=== PATIENT | male | born 1935 | race Caucasian/White ===

== ENCOUNTER 2023-08-31 07:01 | Inpatient (IN) | payer MEDICARE ==
[2023-08-31 07:49] LABS: #Eosinphils 0.1 thou/uL (0.0-0.7); #Monocytes 0.6 thou/uL (0.11-0.59); #Neutrophils 6.3 thou/uL (1.40-6.50); %Basophils 0.4 % (0.0-1.0); %Eosinophils 0.6 % (0.0-10.0); %Lymphocytes 11.5 % (21.0-51.0); Hematocrit 31.3 % (42.0-52.0); Hemoglobin 11.6 g/dL (14.0-18.0); Mean Corpuscular HGB CONC 37.1 g/dL (32.0-36.0); Mean Corpuscular Hemoglobin 32.8 pg (27.0-31.0); Mean Corpuscular Volume 88.4 fl (78.0-98.0); Mean Platelet Volume 9.6 fL (7.4-10.4); Platelet Count 222 10x3/uL (130-400); RBC Distribution Width 12.4 % (11.5-14.5); Red Blood Cell (RBC) Count 3.54 mill/uL (4.70-6.10); White Blood Cell (WBC) Count 7.9 10x3/uL (4.8-10.8)
[2023-08-31 07:59] LABS: Prothrombin Time 13.7 sec (12.0-14.7)
[2023-08-31] MEDS ORDERED: Acetaminophen 500 MG TAB ONE (07:59)
[2023-08-31 08:00] LABS: PTT 32.3 sec (22.9-36.1)
[2023-08-31 08:19] LABS: Troponin I Less than 0.010 ng/mL (< 0.028)
[2023-08-31 08:30] LABS: Bacteria/HPF None Seen HPF (None Seen); Bilirubin Negative (Negative); Blood, Urine Negative (Negative); CAUTI Indications for Culture Dysuria,urgency,freq; Clarity Clear (Clear); Glucose, Urine (Dipstick) Normal (Negative); Ketone, Urine Negative (Negative); Leukocyte Negative Leu/uL (Negative); Nitrite Negative (Negative); Protein, Urine (Dipstick) Negative (Neg-Trace); RBC/HPF 0-3 HPF (0-3); Specific Gravity, Urine 1.011 (1.002-1.036); Squamous Epithelial 0-3 HPF (0-3); WBC/HPF None Seen HPF (0-3); pH, Urine 7.5 (5.0-9.0)
[2023-08-31 08:31] LABS: ALT (SGPT) 8 U/L (8-55); AST (SGOT) 15 U/L (5-34); Albumin 3.6 g/dL (3.4-4.8); Alkaline Phosphatase 98 U/L (40-110); Anion Gap 12 mmol/L (10-20); BUN (Urea Nitrogen) 13 mg/dL (8.4-25.7); Bilirubin, Total 1.4 mg/dL (0.2-1.2); Calc. Creatinine Clearance 0 mL/min (70-130); Calcium 8.7 mg/dL (7.8-10.44); Carbon Dioxide 29 mmol/L (23-31); Chloride 90 mmol/L (98-107); Estimated GFR 57; Globulin 2.5 g/dL (2.4-3.5); Glucose 114 mg/dL (83-110); Magnesium 1.5 mg/dL (1.6-2.6); Potassium 2.8 mmol/L (3.5-5.1); Protein, Total 6.1 g/dL (5.8-8.1); Sodium 128 mmol/L (136-145)
[2023-08-31 08:35] LABS: Urine Culture Reflex No No
[2023-08-31] MEDS ORDERED: Magnesium 2 GM/50 ML BAG (IN WATER) ONE (09:34)
[2023-08-31] MEDS ORDERED: Potassium Bicarbonate/Cit Ac 20 MEQ TAB ONE (09:34)
[2023-08-31 12:17] VITALS: BMI 23.6
[2023-08-31] MEDS: Potassium Chloride 20 MEQ TAB PO SCH ×2 (13:29→18:17)
[2023-08-31] MEDS: Ondansetron PF 4 MG/2 ML Vial IVP PRN (17:00)
[2023-08-31] MEDS: Losartan 25 MG TAB PO SCH (20:29)
[2023-09-01] MEDS: Benzonatate 100 MG CAP PO PRN (00:56)
[2023-09-01 06:35] LABS: #Eosinphils 0.1 thou/uL (0.0-0.7); #Monocytes 0.7 thou/uL (0.11-0.59); %Basophils 0.4 % (0.0-1.0); %Eosinophils 0.9 % (0.0-10.0); %Lymphocytes 13.6 % (21.0-51.0); %Monocytes 7.9 % (0.0-10.0); %Neutrophils 76.7 % (42.0-75.0); Hemoglobin 11.9 g/dL (14.0-18.0); Mean Corpuscular HGB CONC 36.1 g/dL (32.0-36.0); Mean Corpuscular Hemoglobin 32.7 pg (27.0-31.0); Mean Corpuscular Volume 90.7 fl (78.0-98.0); Mean Platelet Volume 9.5 fL (7.4-10.4); Platelet Count 261 10x3/uL (130-400); RBC Distribution Width 12.4 % (11.5-14.5); Red Blood Cell (RBC) Count 3.64 mill/uL (4.70-6.10); White Blood Cell (WBC) Count 9.2 10x3/uL (4.8-10.8)
[2023-09-01 07:03] LABS: Anion Gap 11 mmol/L (10-20); BUN (Urea Nitrogen) 10 mg/dL (8.4-25.7); Calc. Creatinine Clearance 49 mL/min (70-130); Calcium 8.7 mg/dL (7.8-10.44); Carbon Dioxide 26 mmol/L (23-31); Chloride 95 mmol/L (98-107); Estimated GFR 68; Glucose 108 mg/dL (83-110); Magnesium 1.6 mg/dL (1.6-2.6); Potassium 3.9 mmol/L (3.5-5.1); Sodium 128 mmol/L (136-145)
[2023-09-01] MEDS: Losartan 25 MG TAB PO SCH ×2 (10:12→20:31)
[2023-09-01] MEDS: Ondansetron PF 4 MG/2 ML Vial IVP PRN (10:12)
[2023-09-01] MEDS: Amlodipine 5 MG TAB PO SCH (10:12)
[2023-09-01] MEDS ORDERED: GoLYTELY 4,000 ml Bottle PO SCH (15:15)
[2023-09-01] MEDS: Pantoprazole 40 MG VIAL IVP SCH (20:31)
[2023-09-02 06:08] LABS: Anion Gap 17 mmol/L (10-20); BUN (Urea Nitrogen) 12 mg/dL (8.4-25.7); Calc. Creatinine Clearance 49 mL/min (70-130); Carbon Dioxide 26 mmol/L (23-31); Chloride 95 mmol/L (98-107); Estimated GFR 66; Glucose 118 mg/dL (83-110); Magnesium 1.6 mg/dL (1.6-2.6); Potassium 3.5 mmol/L (3.5-5.1); Sodium 134 mmol/L (136-145)
[2023-09-02] MEDS: Pantoprazole 40 MG VIAL IVP SCH ×2 (09:56→20:24)
[2023-09-02] MEDS: Losartan 25 MG TAB PO SCH ×2 (09:56→20:23)
[2023-09-02] MEDS: Amlodipine 5 MG TAB PO SCH (09:56)
[2023-09-02] MEDS ORDERED: Iopamidol-370 76% 500 ML MDV (1 ML CHARGE) ONE (13:13)
[2023-09-02] MEDS ORDERED: PROPOFOL 40 ML ONE (16:06)
[2023-09-02] MEDS ORDERED: Lidocaine 1% PF 5 ML VIAL ONE ×2 (16:06→16:20)
[2023-09-02] MEDS ORDERED: PROPOFOL 200 MG/20 ML VIAL ONE (16:20)
[2023-09-02] MEDS ORDERED: PHENYLEPHRINE-NS 100 MCG/ML 10 ML SYRINGE ONE ×3 (16:20→16:52)
[2023-09-02] MEDS ORDERED: Ondansetron PF 4 MG/2 ML Vial ONE ×2 (16:20→16:39)
[2023-09-02] MEDS ORDERED: Esmolol 100 MG/10 ML VIAL ONE ×2 (16:20→16:23)
[2023-09-02] MEDS ORDERED: PROPOFOL 20 ML ONE ×2 (16:53→17:15)
[2023-09-02] MEDS: Ondansetron PF 4 MG/2 ML Vial IVP PRN (21:40)
[2023-09-03] MEDS: Benzonatate 100 MG CAP PO PRN (00:36)
[2023-09-03 08:01] VITALS: BP 135/73; TEMP 98.5
[2023-09-03] MEDS: Losartan 25 MG TAB PO SCH (08:22)
[2023-09-03] MEDS: Amlodipine 5 MG TAB PO SCH (08:22)
[2023-09-03] MEDS: Pantoprazole 40 MG VIAL IVP SCH (08:22)
[2023-09-03] MEDS ORDERED: FLU VACC QS2023(65UP)/MF59C/PF 60 MCG/0.5 ML SYRINGE IM ONE (09:00)
[2023-09-03 11:18] LABS: #Monocytes 0.6 thou/uL (0.11-0.59); #Neutrophils 10.2 thou/uL (1.40-6.50); %Basophils 0.3 % (0.0-1.0); %Eosinophils 0.2 % (0.0-10.0); %Lymphocytes 7.3 % (21.0-51.0); %Monocytes 5.4 % (0.0-10.0); %Neutrophils 86.3 % (42.0-75.0); Hematocrit 32.6 % (42.0-52.0); Hemoglobin 11.5 g/dL (14.0-18.0); Mean Corpuscular HGB CONC 35.3 g/dL (32.0-36.0); Mean Corpuscular Hemoglobin 32.1 pg (27.0-31.0); Mean Corpuscular Volume 91.1 fl (78.0-98.0); Mean Platelet Volume 9.2 fL (7.4-10.4); Platelet Count 257 10x3/uL (130-400); RBC Distribution Width 12.6 % (11.5-14.5); Red Blood Cell (RBC) Count 3.58 mill/uL (4.70-6.10); White Blood Cell (WBC) Count 11.8 10x3/uL (4.8-10.8)
== END 2023-09-03 12:42 | disposition home or self-care (01) | DRG 844 ==
LOC: ERS 07:01 → T4-B 12:12 → OBSVTOIN 09-01 13:52
PROVIDERS: ADMIT Internal Medicine; ATTEND Internal Medicine
PROC: 0DB68ZX Excision of Stomach, Via Natural or Artificial Opening Endoscopic, Diagnostic (ICD-10-PCS; principal; 2023-09-02)
PROC: 0DBK8ZZ Excision of Ascending Colon, Via Natural or Artificial Opening Endoscopic (ICD-10-PCS; 2023-09-02)
PROC: 0DBL8ZZ Excision of Transverse Colon, Via Natural or Artificial Opening Endoscopic (ICD-10-PCS; 2023-09-02)
PROC: 0DBP8ZZ Excision of Rectum, Via Natural or Artificial Opening Endoscopic (ICD-10-PCS; 2023-09-02)
PROC: 0DBM8ZZ Excision of Descending Colon, Via Natural or Artificial Opening Endoscopic (ICD-10-PCS; 2023-09-02)
PROC: 0DBH8ZZ Excision of Cecum, Via Natural or Artificial Opening Endoscopic (ICD-10-PCS; 2023-09-02)
DX: D3A.8 Other benign neuroendocrine tumors (principal); E87.1 Hypo-osmolality and hyponatremia; K62.5 Hemorrhage of anus and rectum; K62.89 Other specified diseases of anus and rectum; K62.1 Rectal polyp; I10 Essential (primary) hypertension; E87.6 Hypokalemia; E83.42 Hypomagnesemia; Z66 Do not resuscitate; K31.89 Other diseases of stomach and duodenum; K64.4 Residual hemorrhoidal skin tags; K64.8 Other hemorrhoids; D12.2 Benign neoplasm of ascending colon; D12.3 Benign neoplasm of transverse colon; D12.4 Benign neoplasm of descending colon; D12.5 Benign neoplasm of sigmoid colon; Z98.890 Other specified postprocedural states
CPT/HCPCS: 36415; 71260; 74174; 74177; 80048; 80053; 81001; 82274; 83735; 83880; 83935; 84300; 84443; 84484; 85025; 85610; 85730; 86850; 86900; 86901; 88305; 88341; 88342; 88360; 90471; 90694; 93005; 93010; 96360; 96375; 96376; C9113; G0008; G0378; J2405; J2704; J3475; Q9967

== ENCOUNTER 2023-11-02 12:20 | Emergency (ER) | payer MEDICARE ==
[2023-11-02] MEDS ORDERED: Ondansetron ODT 8 MG TAB ONE (14:52)
[2023-11-02 15:50] LABS: #Monocytes 0.2 thou/uL (0.11-0.59); #Neutrophils 5.1 thou/uL (1.40-6.50); %Basophils 0.2 % (0.0-1.0); %Lymphocytes 9.1 % (21.0-51.0); %Monocytes 3.9 % (0.0-10.0); %Neutrophils 86.3 % (42.0-75.0); Hematocrit 34.9 % (42.0-52.0); Hemoglobin 12.6 g/dL (14.0-18.0); Mean Corpuscular HGB CONC 36.1 g/dL (32.0-36.0); Mean Corpuscular Hemoglobin 31.3 pg (27.0-31.0); Mean Corpuscular Volume 86.6 fl (78.0-98.0); Mean Platelet Volume 10.4 fL (7.4-10.4); Platelet Count 121 10x3/uL (130-400); RBC Distribution Width 12.4 % (11.5-14.5); Red Blood Cell (RBC) Count 4.03 mill/uL (4.70-6.10); White Blood Cell (WBC) Count 5.9 10x3/uL (4.8-10.8)
[2023-11-02 16:41] LABS: ALT (SGPT) 18 U/L (8-55); AST (SGOT) 27 U/L (5-34); Albumin 3.4 g/dL (3.4-4.8); Alkaline Phosphatase 92 U/L (40-110); Anion Gap 13 mmol/L (10-20); BUN (Urea Nitrogen) 17 mg/dL (8.4-25.7); Bilirubin, Total 1.1 mg/dL (0.2-1.2); Calc. Creatinine Clearance 0 mL/min (70-130); Calcium 8.3 mg/dL (7.8-10.44); Carbon Dioxide 26 mmol/L (23-31); Chloride 96 mmol/L (98-107); Estimated GFR 61; Globulin 2.8 g/dL (2.4-3.5); Glucose 116 mg/dL (83-110); Lipase 27 U/L (8-78); Potassium 3.6 mmol/L (3.5-5.1); Protein, Total 6.2 g/dL (5.8-8.1); Sodium 131 mmol/L (136-145)
== END 2023-11-02 17:21 | disposition home or self-care (01) ==
LOC: ERS 12:20
DX: R63.0 Anorexia (principal); I10 Essential (primary) hypertension; Z79.899 Other long term (current) drug therapy
CPT/HCPCS: 36415; 80053; 83690; 85025; 99284; Q0162

== ENCOUNTER 2023-11-09 02:26 | Emergency (ER) | payer MEDICARE ==
[2023-11-09 03:58] LABS: #Eosinphils 0.1 thou/uL (0.0-0.7); #Monocytes 0.5 thou/uL (0.11-0.59); #Neutrophils 4.7 thou/uL (1.40-6.50); %Basophils 0.2 % (0.0-1.0); %Eosinophils 1.6 % (0.0-10.0); %Lymphocytes 15.5 % (21.0-51.0); %Monocytes 7.4 % (0.0-10.0); %Neutrophils 74.4 % (42.0-75.0); Hematocrit 35.8 % (42.0-52.0); Hemoglobin 12.7 g/dL (14.0-18.0); Mean Corpuscular HGB CONC 35.5 g/dL (32.0-36.0); Mean Corpuscular Hemoglobin 30.6 pg (27.0-31.0); Mean Corpuscular Volume 86.3 fl (78.0-98.0); Mean Platelet Volume 9.3 fL (7.4-10.4); Platelet Count 329 10x3/uL (130-400); RBC Distribution Width 12.5 % (11.5-14.5); Red Blood Cell (RBC) Count 4.15 mill/uL (4.70-6.10); White Blood Cell (WBC) Count 6.3 10x3/uL (4.8-10.8)
[2023-11-09 04:09] LABS: ALT (SGPT) 17 U/L (8-55); AST (SGOT) 19 U/L (5-34); Albumin 3.5 g/dL (3.4-4.8); Alkaline Phosphatase 110 U/L (40-110); Anion Gap 14 mmol/L (10-20); BUN (Urea Nitrogen) 12 mg/dL (8.4-25.7); Bilirubin, Total 1.3 mg/dL (0.2-1.2); Calc. Creatinine Clearance 0 mL/min (70-130); Calcium 9.6 mg/dL (7.8-10.44); Carbon Dioxide 27 mmol/L (23-31); Chloride 94 mmol/L (98-107); Estimated GFR 58; Globulin 3.3 g/dL (2.4-3.5); Glucose 105 mg/dL (83-110); Lipase 19 U/L (8-78); Potassium 3.6 mmol/L (3.5-5.1); Protein, Total 6.8 g/dL (5.8-8.1); Sodium 131 mmol/L (136-145)
[2023-11-09 04:13] LABS: Troponin I Less than 0.010 ng/mL (< 0.028)
== END 2023-11-09 05:42 | disposition home or self-care (01) ==
LOC: ERS 02:26
DX: R10.13 Epigastric pain (principal); J18.9 Pneumonia, unspecified organism; I10 Essential (primary) hypertension; E78.5 Hyperlipidemia, unspecified; Z55.6 Problems related to health literacy
CPT/HCPCS: 36415; 71045; 80053; 83690; 84484; 85025; 93005